=== PATIENT | female | born 1990 | race Caucasian/White ===

== ENCOUNTER 2017-02-26 22:40 | Emergency (ER) | payer OTHER ==
--- NOTE | ~2017-02-26 | ER ---
PATIENT'S NAME: WAYNE COBB [facility] AGE: 26 Y [address] ROOM: [place] [id number] LOCATION: ED ADMIT DATE: 02/26/2017 ER/Outpatient Report DISCHARGE DATE: 02/26/2017 FAMILY PHYSICIAN: Kerri Alvarez APRN ATTENDING PHYSICIAN: Richard Lee Time of arrival: 0 Time of evaluation: 2254 CHIEF COMPLAINT: Right great toe pain. HISTORY OF PRESENT ILLNESS: This is a 26-year-old female, who presents to the ER. She states she feels like she has an ingrown toenail in her right great toe. She states it has been like that for approximately a week. She states that she has been using some hydrogen peroxide on it and it has not helped. The patient denies any fevers. No other problems at this time. ALLERGIES: NO KNOWN ALLERGIES. MEDICATIONS: Please see medication list nurse's notes. PAST MEDICAL HISTORY: 1. Pnx-yuanvgb-nqsliwvek diabetic. 2. Hypertension. 3. Fibromyalgia. 4. Psychiatric problems. SOCIAL HISTORY: Denies smoking, drug, or alcohol use. REVIEW OF SYSTEMS: A 10-point review of system was completed and was negative with the exception of those discussed in the HPI. PHYSICAL EXAMINATION: VITAL SIGNS: Height 5 feet 8 inches stated, weight 149.9 kg taken, blood pressure is 130/80, pulse 100, respirations 16, temperature 98.7 degrees tympanically, saturations 96% on room air. [place] Coma Score is 15. GENERAL: Alert, calm, well-developed female, in no acute distress. MUSCULOSKELETAL: She has full range of motion of all limbs. PATIENT'S NAME: WAYNE COBB [facility] AGE: 26 Y [address] ROOM: [place] [id number] LOCATION: ED ADMIT DATE: 02/26/2017 ER/Outpatient Report DISCHARGE DATE: 02/26/2017 FAMILY PHYSICIAN: Kerri Alvarez APRN ATTENDING PHYSICIAN: Richard Lee SKIN: Around the skin, her right great toe, she does have an ingrown toenail noted to the medial aspect. She does have some purulent drainage noted to the area. It is erythematic and is tender to palpation. LABS AND X-RAYS: None were done. IMPRESSION: Right ingrown toe nail to the right hallux. ASSESSMENT AND PLAN: I will be placing the patient on Keflex to use as directed. I advised her to soak her foot in Epsom salts and she may take Tylenol and ibuprofen as needed for pain control and needed to follow up with her primary care physician for followup care. The patient understands and agrees with care. ALEXSANDER DAY PA-C FOR [facility] [employer]/sree /[id number] d: 02/27/17 0326 t: 03/04/17 1905, OUTPATIENT REPORT
== END 2017-02-26 23:10 | disposition disaster alternative care site (69) ==
LOC: GMED 22:40
DX: L60.0 Ingrowing nail (principal); I10 Essential (primary) hypertension; E11.9 Type 2 diabetes mellitus without complications; M79.7 Fibromyalgia; Z79.899 Other long term (current) drug therapy; Z79.84 Long term (current) use of oral hypoglycemic drugs